=== PATIENT | female | born 1970 | race Caucasian/White ===

== ENCOUNTER 2017-02-07 08:13 | Emergency (ER) | payer OTHER ==
[2017-02-07 08:24] VITALS: BP 147/92
[2017-02-07] MEDS ORDERED: Sodium Chloride 0.9% 10 ML Syringe FLUSH PRN (08:35)
--- NOTE | 2017-02-07 08:42 | EDM.PDOC ---
ED HPI GENERAL MEDICAL PROBLEM - General Chief Complaint: Cardiovascular Problem Stated Complaint: HEART PALPITATIONS Time Seen by Provider: 02/07/17 08:28 Source of Information: Reports: Patient History Limitations: Reports: No Limitations - History of Present Illness INITIAL COMMENTS - FREE TEXT/NARRATIVE: The patient presents with palpitations. She has a known AV jenifer reentry tachycardia. 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 She used to live in [place] and she would have this a lot. She now lives in [place] and she has not had trouble. She has been traveling to [place] and now back to [place]. They were traveling through [place] and she noticed some palpitations. It is better now. She called her acid pump operator and he recommended coming in to be checked. She denies chest pain or shortness of breath. Onset: Gradual Duration: Hour(s): Improves with: Reports: None Worsens with: Reports: Other (Higher elevations) Associated Symptoms: Denies: Chest Pain, Fever/Chills, Nausea/Vomiting, Shortness of Breath - Related Data Allergies Allergy/AdvReac Type Severity Reaction Status Date / Time ciprofloxacin [From Cipro] Allergy Cannot Verified 02/07/17 08:25 Remember Iodinated Contrast- Oral and Allergy Hives Verified 02/07/17 08:25 IV Dye Home Meds: Home Meds Atenolol 25 mg PO DAILY 02/07/17 [History] Past Medical History Cardiovascular History: Reports: Other (See Below) Other Cardiovascular History: AV node re-entry heart condition Gastrointestinal History: Reports: Irritable Bowel Syndrome [employer] History: Reports: - Past Surgical History Cardiovascular Surgical History: Reports: None GI Surgical History: Reports: None Social & Family History - Tobacco Use Smoking Status *Q: Former Smoker Used Tobacco, but Quit: Yes Month Tobacco Last Used: 15 years ago Second Hand Smoke Exposure: No - Caffeine Use Caffeine Use: Reports: None - Recreational Drug Use Recreational Drug Use: No ED ROS GENERAL - Review of Systems Review Of Systems: See Below Constitutional: Reports: No Symptoms HEENT: Reports: No Symptoms Respiratory: Reports: No Symptoms Cardiovascular: Reports: Palpitations. Denies: Chest Pain Endocrine: Reports: No Symptoms GI/Abdominal: Reports: No Symptoms : Reports: No Symptoms Musculoskeletal: Reports: No Symptoms Skin: Reports: No Symptoms ED EXAM, GENERAL - Physical Exam Exam: See Below Exam Limited By: No Limitations General Appearance: Alert, No Apparent Distress Ears: Normal External Exam Nose: Normal Inspection Head: Atraumatic, Normocephalic Neck: Normal Inspection Respiratory/Chest: No Respiratory Distress, Lungs Clear, Normal Breath Sounds Cardiovascular: Regular Rate, Rhythm, No Edema, No Murmur GI/Abdominal: Soft, Non-Tender, No Organomegaly, No Mass Back Exam: Normal Inspection Extremities: Normal Inspection Neurological: Alert, Oriented, No Motor/Sensory Deficits EKG INTERPRETATION EKG Date: 02/07/17 Time: 08:22 Rhythm: NSR Rate (Beats/Min): 65 [place]: Normal P-Wave: Present QRS: Normal ST-T: Normal QT: Normal Course - Vital Signs Last Recorded V/S: Last Vital Signs Temp 97.2 F 02/07/17 08:21 Pulse 72 02/07/17 08:21 Resp 20 02/07/17 08:21 BP 147/92 H 02/07/17 08:21 Pulse Ox 100 02/07/17 08:30 - Orders/Labs/Meds Orders: Active Orders 24 hr Category Date Time Status Cardiac Monitoring [RC] . DIRECTED Care 02/07/17 08:35 Active EKG Documentation Completion [RC] STAT Care 02/07/17 08:35 Active Peripheral IV Care [RC] . DIRECTED Care 02/07/17 08:36 Active Sodium Chloride 0.9% [Normal Saline] 1,000 ml Med 02/07/17 08:45 Active IV .BOLUS Sodium Chloride 0.9% [Saline Flush] Med 02/07/17 08:35 Active 10 ml FLUSH ASDIRECTED PRN Peripheral IV Insertion Adult [OM.PC] Stat Oth 02/07/17 08:35 Ordered Medication Orders Sodium Chloride (Normal Saline) 1,000 mls @ 1,000 mls/hr IV .BOLUS ANALI Last Admin: 02/07/17 08:47 Dose: 1,000 mls/hr Sodium Chloride (Saline Flush) 10 ml FLUSH ASDIRECTED PRN PRN Reason: Keep Vein Open Last Admin: 02/07/17 08:47 Dose: 10 ml Labs: Laboratory Tests 02/07/17 02/07/17 Range/Units 08:45 08:45 WBC 5.43 (3.98-10.04) K/mm3 RBC 5.03 (3.98-5.22) M/mm3 Hgb 14.2 (11.2-15.7) gm/L Hct 42.1 (34.1-44.9) % MCV 83.7 (79.4-94.8) fl MCH 28.2 (25.6-32.2) pg MCHC 33.7 (32.2-35.5) g/dl RDW Std Deviation 39.7 (36.4-46.3) fL Plt Count 273 (182-369) K/mm3 MPV 10.1 (9.4-12.3) fl Neut % (Auto) 71.5 H (34.0-71.1) % Lymph % (Auto) 21.4 (19.3-51.7) % [place] % (Auto) 4.4 L (4.7-12.5) % Eos % (Auto) 2.0 (0.7-5.8) Baso % (Auto) 0.7 (0.1-1.2) % Neut # (Auto) 3.88 (1.56-6.13) K/mm3 Lymph # (Auto) 1.16 L (1.18-3.74) K/mm3 [place]aines # (Auto) 0.24 (0.24-0.36) K/mm3 Eos # (Auto) 0.11 (0.04-0.36) K/mm3 Baso # (Auto) 0.04 (0.01-0.08) K/mm3 Sodium 137 (136-145) mEq/L Potassium 4.0 (3.5-5.1) mEq/L Chloride 102 (98-107) mEq/L Carbon Dioxide 25 (21-32) mEq/L Anion Gap 14.0 (5-15) BUN 13 (7-18) mg/dL Creatinine 0.8 (0.55-1.02) mg/dL Est Cr Clr Drug Dosing 75.95 mL/min Estimated GFR (MDRD) > 60 (>60) mL/min BUN/Creatinine Ratio 16.3 (14-18) Glucose 92 (74-106) mg/dL Calcium 9.7 (8.5-10.1) mg/dL Total Bilirubin 0.5 (0.2-1.0) mg/dL AST 19 (15-37) U/L ALT 24 (14-59) U/L Alkaline Phosphatase 71 (46-116) U/L Troponin I < 0.017 (0.00-0.056) ng/mL Total Protein 9.0 H (6.4-8.2) g/dl Albumin 4.6 (3.4-5.0) g/dl Globulin 4.4 gm/dL Albumin/Globulin Ratio 1.1 (1-2) TSH 3rd Generation 1.744 (0.358-3.74) uIU/mL Meds: Medications Generic Name Dose Route Start Last Admin Trade Name Freq PRN Reason Stop Dose Admin Sodium Chloride 1,000 mls @ 1,000 mls/hr 02/07/17 08:45 02/07/17 08:47 Normal Saline IV 1,000 mls/hr .BOLUS ANALI Administration Sodium Chloride 10 ml 02/07/17 08:35 02/07/17 08:47 Saline Flush FLUSH 10 ml ASDIRECTED PRN Administration Keep Vein Open - Re-Assessments/Exams Free Text/Narrative Re-Assessment/Exam: 02/07/17 08:41 I ordered an IV NS 1L bolus, EKG and labs. Her acid pump operator did recommend staying well hydrated. I will give her a liter of NS. 02/07/17 09:38 Her EKG and BP look good. Her labs look good. I recommend she take another dose of her atenolol on the way. She plans on driving strait through today. Departure - Departure Time of Disposition: 09:40 Disposition: Home, Self-Care 01 Condition: Good Clinical Impression: Palpitations Forms: ED Department Discharge Additional Instructions: Take an extra dose of your atenolol today and follow up with your doctor when you get home. Go to an ER on the way if you have sustained tachycardia lasting more then 20 to 30 minutes, chest pain, shortness of breath or if you are uncomfortable. - My Orders Last 24 Hours: My Active Orders 02/07/17 08:35 Cardiac Monitoring [RC] . DIRECTED EKG Documentation Completion [RC] STAT Sodium Chloride 0.9% [Saline Flush] 10 ml FLUSH ASDIRECTED PRN Peripheral IV Insertion Adult [OM.PC] Stat 02/07/17 08:36 Peripheral IV Care [RC] . DIRECTED 02/07/17 08:45 Sodium Chloride 0.9% [Normal Saline] 1,000 ml IV .BOLUS - Assessment/Plan Last 24 Hours: My Active Orders 02/07/17 08:35 Cardiac Monitoring [RC] . DIRECTED EKG Documentation Completion [RC] STAT Sodium Chloride 0.9% [Saline Flush] 10 ml FLUSH ASDIRECTED PRN Peripheral IV Insertion Adult [OM.PC] Stat 02/07/17 08:36 Peripheral IV Care [RC] . DIRECTED 02/07/17 08:45 Sodium Chloride 0.9% [Normal Saline] 1,000 ml IV .BOLUS
[2017-02-07] MEDS ORDERED: Sodium Chloride 0.9% 1,000 ML IV SCH (08:45)
== END 2017-02-07 09:50 | disposition home or self-care (01) ==
LOC: JD.ED 08:13
DX: R00.2 Palpitations (principal); Z87.890 Personal history of sex reassignment; Z88.1 Allergy status to other antibiotic agents; Z91.041 Radiographic dye allergy status
CPT/HCPCS: 36415; 80053; 84443; 84484; 85025; 93005; 96360; 99285; J7040; J7050; 99283